=== PATIENT | male | born 1945 | race Caucasian/White ===

== ENCOUNTER 2020-01-21 07:40 | Emergency (ER) | payer MEDICARE, BC ==
--- NOTE | 2020-01-21 08:00 | EDM.PDOC ---
ED HPI GENERAL MEDICAL PROBLEM - General Chief Complaint: Cardiovascular Problem Stated Complaint: A FIB Time Seen by Provider: 01/21/20 07:58 - History of Present Illness INITIAL COMMENTS - FREE TEXT/NARRATIVE: 74-year-old male presents the emergency room after having surgery held off due to A. fib with RVR. Patient was scheduled for a carpal tunnel release however his preop EKG showed atrial fib with RVR. Patient really has not had any symptoms with this. He is not sure what the onset is however he did notice over the last couple weeks if he bends over and sits up really quick he might get a little lightheaded. The p [place] is fairly active rides his bike on a regular basis. He used to run marathons and is in pretty good shape. He has a history of aortic regurgitation however his last echo a couple years ago showed an EF of over 60%. - Related Data Allergies Allergy/AdvReac Type Severity Reaction Status Date / Time No Known Allergies Allergy Verified 01/20/20 13:09 Home Meds: Home Meds Biotin 1 mg PO DAILY 01/20/20 [History] Fish Oil/[place]-3 Fatty Acids [Fish Oil 1,000 MG] 1 gm PO DAILY 01/20/20 [History] Folic Acid 1 mg PO DAILY 01/20/20 [History] Multivitamin [Multivitamins] 1 cap PO DAILY 01/20/20 [History] Non-Formulary Medication [NF Drug] 1 each PO DAILY 01/20/20 [History] Acetaminophen/HYDROcodone [[place] 325-5 MG] 1 - 2 tab PO Q6H PRN #10 tablet 01/21/20 [Rx] Apixaban [Eliquis] 5 mg PO Q12H #60 tablet 01/21/20 [Rx] Digoxin [Digox] 125 mcg PO ASDIRECTED #31 tablet 01/21/20 [Rx] Past Medical History HEENT History: Reports: Other (See Below) Other HEENT History: deviated septum Respiratory History: Reports: Asthma Genitourinary History: Reports: BPH Oncologic (Cancer) History: Reports: Basal Cell Carcinoma, Squamous Cell Carcinoma Other Dermatologic History: actinic kerotosis - Past Surgical History GI Surgical History: Reports: Hernia Repair/Other Musculoskeletal Surgical History: Reports: Carpal Tunnel Social & Family History - Caffeine Use Caffeine Use: Reports: Coffee ED ROS GENERAL - Review of Systems Review Of Systems: See Below Constitutional: Reports: No Symptoms. Denies: Fever, Chills HEENT: Reports: No Symptoms Respiratory: Reports: No Symptoms Cardiovascular: Reports: No Symptoms. Denies: Chest Pain, Dyspnea on Exertion, Edema, Palpitations, Syncope Endocrine: Reports: No Symptoms GI/Abdominal: Reports: No Symptoms : Reports: No Symptoms Musculoskeletal: Reports: No Symptoms Skin: Reports: No Symptoms Neurological: Reports: No Symptoms ED EXAM, GENERAL - Physical Exam Exam: See Below Exam Limited By: No Limitations General Appearance: Alert, No Apparent Distress Neck: Normal Inspection, Supple, Non-Tender, Full Range of Motion Respiratory/Chest: No Respiratory Distress, Lungs Clear, Normal Breath Sounds Cardiovascular: No Edema, No Murmur, Irregularly Irregular GI/Abdominal: Normal Bowel Sounds, Soft, Non-Tender Extremities: Normal Inspection, No Pedal Edema Neurological: Alert, Oriented, Normal Cognition EKG INTERPRETATION Rhythm: A-Fib Rate (Beats/Min): 121 [place]: Normal P-Wave: Absent QRS: Normal ST-T: Other (Mild LV strain pattern and some nonspecific changes most likely due to tachycardia) QT: Normal Comparison: NA - No Prior EKG EKG Interpretation Comments: Abnormal Course - Vital Signs Last Recorded V/S: Last Vital Signs Temp 36.8 C 01/21/20 07:40 Pulse 140 H 01/21/20 07:40 Resp 20 01/21/20 07:40 BP 136/84 01/21/20 07:40 Pulse Ox 98 01/21/20 07:40 - Orders/Labs/Meds Orders: Active Orders 24 hr Category Date Time Status Chest 1V Frontal [CR] Stat Exams 01/21/20 07:52 Taken Labs: Laboratory Tests 01/21/20 01/21/20 01/21/20 Range/Units 08:04 08:04 08:04 WBC 5.35 (4.23-9.07) K/mm3 RBC 4.64 (4.63-6.08) M/mm3 Hgb 15.0 (13.7-17.5) gm/dl Hct 43.8 (40.1-51.0) % MCV 94.4 H (79.0-92.2) fl MCH 32.3 H (25.7-32.2) pg MCHC 34.2 (32.2-35.5) g/dl RDW Std Deviation 41.9 (35.1-43.9) fL Plt Count 191 (163-337) K/mm3 MPV 8.9 L (9.4-12.3) fl Neut % (Auto) 55.7 (34.0-67.9) % Lymph % (Auto) 35.5 (21.8-53.1) % [place] % (Auto) 8.0 (5.3-12.2) % Eos % (Auto) 0.4 L (0.8-7.0) Baso % (Auto) 0.4 (0.1-1.2) % Neut # (Auto) 2.98 (1.78-5.38) K/mm3 Lymph # (Auto) 1.90 (1.32-3.57) K/mm3 [place] # (Auto) 0.43 (0.30-0.82) K/mm3 Eos # (Auto) 0.02 L (0.04-0.54) K/mm3 Baso # (Auto) 0.02 (0.01-0.08) K/mm3 Sodium 142 (136-145) mEq/L Potassium 4.0 (3.5-5.1) mEq/L Chloride 107 (98-107) mEq/L Carbon Dioxide 24 (21-32) mEq/L Anion Gap 15.0 (5-15) BUN 17 (7-18) mg/dL Creatinine 1.0 (0.7-1.3) mg/dL Est Cr Clr Drug Dosing 74.43 mL/min Estimated GFR (MDRD) > 60 (>60) mL/min BUN/Creatinine Ratio 17.0 (14-18) Glucose 97 (83-115) mg/dL Calcium 9.0 (8.5-10.1) mg/dL Magnesium 1.8 (1.8-2.4) mg/dl Total Bilirubin 0.7 (0.2-1.0) mg/dL AST 22 (15-37) U/L ALT 32 (16-63) U/L Alkaline Phosphatase 78 (46-116) U/L Troponin I < 0.017 (0.00-0.056) ng/mL Total Protein 6.4 (6.4-8.2) g/dl Albumin 3.6 (3.4-5.0) g/dl Globulin 2.8 gm/dL Albumin/Globulin Ratio 1.3 (1-2) Meds: Medications Discontinued Medications Generic Name Dose Route Start Last Admin Trade Name [place] PRN Reason Stop Dose Admin Digoxin 250 mcg 01/21/20 08:52 Lanoxin PO 01/21/20 08:53 ONETIME ONE - Re-Assessments/Exams Free Text/Narrative Re-Assessment/Exam: 01/21/20 08:[address] Guo, the patient's regular physician, he cannot find a echo on the patient however he believes to be safe to start him on Eliquis. For rate control with the patient being very active we will start him on digoxin I will give him 250 mcg now he will repeat this in 6 hours and then 125 mcg daily. The patient will follow up with early this next week. The patient is restless to get going as his ride is getting impatient. Departure - Departure Time of Disposition: 09:00 Disposition: Home, Self-Care 01 Clinical Impression: Atrial fibrillation with rapid ventricular response Referrals: Neptali Guo MD [Primary Care Provider] - Forms: ED Department Discharge Additional Instructions: Return to the emergency room with any questions problems or worsening symptoms. Follow-up with your doctor early next week. Call today to schedule an appointment. You have been started on Eliquis, this is a blood thinner, take 1 every 12 hours. You have been started on digoxin, this is to slow your heart rate down, take 2 at 3:00 this afternoon and then take 1 every morning starting tomorrow morning. Sepsis Event Note (ED) - Evaluation Sepsis Screening Result: No Definite Risk - Focused Exam Vital Signs: Vital Signs Temp Pulse Resp BP Pulse Ox 01/21/20 07:40 36.8 C 140 H 20 136/84 98 - My Orders Last 24 Hours: My Active Orders 01/21/20 07:52 Chest 1V Frontal [CR] Stat - Assessment/Plan Last 24 Hours: My Active Orders 01/21/20 07:52 Chest 1V Frontal [CR] Stat
[2020-01-21] MEDS ORDERED: Digoxin 250 MCG Tab PO ONE (08:52)
--- NOTE | 2020-01-21 09:16 | CR ---
Chest: Portable view of the chest was obtained. Comparison: No previous chest imaging. Small portion of the right lateral costophrenic angle is not included on this study. Lungs otherwise are clear. Heart size and mediastinum are normal. Bony structures are unremarkable. Impression: 1. Small portion of the right lateral costophrenic angle not included. 2. Nothing acute is appreciated. Diagnostic code #2 This report was dictated in MDT
== END 2020-01-21 09:20 | disposition home or self-care (01) ==
LOC: JD.ED 07:40 → SUPCPDRO 07:40 → JD.ED 09:20
DX: I48.91 Unspecified atrial fibrillation (principal); J45.909 Unspecified asthma, uncomplicated; Z79.01 Long term (current) use of anticoagulants; Z79.899 Other long term (current) drug therapy
CPT/HCPCS: 36415; 71045; 80053; 83735; 84484; 85025; 99285; A9270; 93010; 99283

== ENCOUNTER → 2020-01-21 | Day surgery (SDC) | payer MEDICARE, BC ==
[~2020-01-21] MED LIST: Bupivacaine 0.25% 10 ML SDV ONE; Lactated Ringers 1,000 ML IV SCH; Lidocaine 1% 30 ML SDV ONE; Lidocaine 1%/Sod Bicarbonate in NS 8.4% 1 ML Syringe IDERM PRN; Propofol 200 MG/20 ML SDV ONE; Sodium Chloride 0.9% 10 ML Syringe FLUSH PRN; fentaNYL 100 MCG/2 ML SDV ONE
--- NOTE | 2020-01-21 07:49 | PCM.PREANE ---
Preanesthetic Assessment - Procedure Proposed Procedure: Carpal tunnel release - left - Anesthesia/Transfusion/Family Hx Anesthesia History: Prior Anesthesia Without Reaction - Review of Systems General: No Symptoms Pulmonary: No Symptoms Cardiovascular: No Symptoms Gastrointestinal: No Symptoms Neurological: No Symptoms - Physical Assessment NPO Status Date: 01/20/20 Vital Signs: Last Vital Signs Temp 97.2 F 01/21/20 06:35 Pulse 72 01/21/20 06:35 Resp 16 01/21/20 06:35 BP 128/78 01/21/20 06:35 Pulse Ox 97 01/21/20 06:35 Height: 1.88 m Weight: 81.647 kg ASA Class: 2 Airway Class: Mallampati = 2 Dentition: Reports: [place](s) Thyro-Mental Finger Breadths: 3 Mouth Opening Finger Breadths: 3 ROM/Head Extension: Full Lungs: Clear to Auscultation, Normal Respiratory Effort Cardiovascular: Irregular Rhythm - Lab Values: Laboratory Last Values COVID-19 PCR Not detected (NOT DETECT) 01/18/20 11:45 MRSA (PCR) Negative 01/18/20 10:53 - Allergies Allergies/Adverse Reactions: Allergies Allergy/AdvReac Type Severity Reaction Status Date / Time No Known Allergies Allergy Verified 01/20/20 13:09 - Acknowledgements Anesthesia Type Planned: MAC Pt an Appropriate Candidate for the Planned Anesthesia: No Alternatives and Risks of Anesthesia Discussed w Pt/Guardian: Yes Pt/Guardian Understands and Agrees with Anesthesia Plan: Yes Additional Comments: Patient has been cleared for surgery previously but denied previous irregular heart rate or chest discomfort. There was no previous EKG to compare. The patient was attached to the 3 lead monitor in OR which showed rapid irregular electrical activity of the heart and the case is canceled. The patient has been taken to preoperative are where 12 lead EKG was done immediately, which showed atrial fibrillation. There is no history of atrial fibrillation on the chart, so a new onset is presumed. The patient is being sent to ED for further evaluation PreAnesthesia Questionnaire HEENT History: Reports: Other (See Below) Other HEENT History: deviated septum Respiratory History: Reports: Asthma Genitourinary History: Reports: BPH Oncologic (Cancer) History: Reports: Basal Cell Carcinoma, Squamous Cell Carcinoma Other Dermatologic History: actinic kerotosis - Past Surgical History GI Surgical History: Reports: Hernia Repair/Other Musculoskeletal Surgical History: Reports: Carpal Tunnel - SUBSTANCE USE Smoking Status *Q: Former Smoker Days Per Week of Alcohol Use: 7 Number of Drinks Per Day: 2 Total Drinks Per Week: 14 Recreational Drug Use History: No - HOME MEDS Home Medications: Home Meds Biotin 1 mg PO DAILY 01/20/20 [History] Fish Oil/[place]-3 Fatty Acids [Fish Oil 1,000 MG] 1 gm PO DAILY 01/20/20 [History] Folic Acid 1 mg PO DAILY 01/20/20 [History] Multivitamin [Multivitamins] 1 cap PO DAILY 01/20/20 [History] Non-Formulary Medication [NF Drug] 1 each PO DAILY 01/20/20 [History] Acetaminophen/HYDROcodone [[place] 325-5 MG] 1 - 2 tab PO Q6H PRN #10 tablet 01/21/20 [Rx] - CURRENT (IN HOUSE) MEDS Current Meds: Current Medications Lactated Ringer's (Ringers, Lactated) 1,000 mls @ 125 mls/hr IV ASDIRECTED ENE Stop: 01/21/20 23:00 Last Admin: 01/21/20 06:50 Dose: 125 mls/hr Documented by: Lidocaine/Sodium Bicarbonate (Buffered Lidocaine 1% In Ns 8.4%) 0.25 ml IDERM ONETIME PRN PRN Reason: Prior to IV Start Stop: 01/21/20 18:00 Last Admin: 01/21/20 06:50 Dose: 0.25 ml Documented by: Sodium Chloride (Saline Flush) 10 ml FLUSH ASDIRECTED PRN PRN Reason: Keep Vein Open Stop: 01/21/20 18:00 Discontinued Medications Bupivacaine HCl (Sensorcaine-Mpf 0.25%) Confirm Administered Dose 10 ml .ROUTE .STK-MED ONE Stop: 01/21/20 06:48 Fentanyl (Sublimaze) Confirm Administered Dose 100 mcg .ROUTE .STK-MED ONE Stop: 01/21/20 07:02 Lidocaine HCl (Xylocaine-Mpf 1%) Confirm Administered Dose 30 ml .ROUTE .STK-MED ONE Stop: 01/21/20 06:48 Lidocaine HCl (Xylocaine-Mpf 1%) Confirm Administered Dose 30 ml .ROUTE .STK-MED ONE Stop: 01/21/20 06:49 Propofol (Diprivan 20 Ml) Confirm Administered Dose 200 mg .ROUTE .STK-[facility] ONE Stop: 01/21/20 07:01
== END | disposition home or self-care (01) ==
LOC: JD.SDS 06:32
PROVIDERS: ATTEND Orthopaedic Surgery
DX: G56.02 Carpal tunnel syndrome, left upper limb (principal); I48.91 Unspecified atrial fibrillation; J45.909 Unspecified asthma, uncomplicated; Z11.59 Encounter for screening for other viral diseases; Z53.09 Procedure and treatment not carried out because of other contraindication; Z87.891 Personal history of nicotine dependence; Z79.899 Other long term (current) drug therapy
CPT/HCPCS: 87641; 93005; J2001; J3490; J7120; U0002; J2704; J3010

== ENCOUNTER 2021-12-26 08:27 | Emergency (ER) | payer MEDICARE, BC ==
[2021-12-26] MEDS ORDERED: Sodium Chloride 0.9% 10 ML Syringe FLUSH PRN (09:30)
[2021-12-26] MEDS ORDERED: Sodium Chloride 0.9% 1,000 ML IV SCH (09:45)
[2021-12-26 11:05] LABS: ESTIMATED GFR 92 mL/min (>60)
[2021-12-26] MEDS ORDERED: Metoprolol Tartrate 25 MG Tab PO ONE (11:44)
== END 2021-12-26 13:50 | disposition home or self-care (01) ==
LOC: JD.ED 08:27
DX: I48.91 Unspecified atrial fibrillation (principal); Z79.01 Long term (current) use of anticoagulants
CPT/HCPCS: 36415; 71045; 80053; 81003; 83735; 83880; 84484; 85025; 86140; 93005; 96360; 96361; 99285; A9270; J3490; J7030; 99284

== ENCOUNTER 2023-03-04 06:15 | Day surgery (SDC) | payer MEDICARE, BC ==
[~2023-03-04 06:15] MED LIST changes: -Bupivacaine 0.25% 10 ML SDV ONE; -Lidocaine 1% 30 ML SDV ONE; -Lidocaine 1%/Sod Bicarbonate in NS 8.4% 1 ML Syringe IDERM PRN; -Propofol 200 MG/20 ML SDV ONE; +VANCOmycin 1.25 GM/250 ML 1.25 GM in Premix Bag 1 BAG IV ONE; -fentaNYL 100 MCG/2 ML SDV ONE
[2023-03-04] MEDS ORDERED: Lidocaine 1% 30 ML SDV ONE (06:40)
[2023-03-04] MEDS ORDERED: Bupivacaine 0.5% 30 ML SDV ONE (06:40)
[2023-03-04] MEDS ORDERED: Bupivacaine 0.25% 10 ML SDV ONE (06:41)
[2023-03-04] MEDS ORDERED: Lidocaine 1% 10 ML MDV ONE (06:41)
[2023-03-04] MEDS ORDERED: Lidocaine 1% 5 ML VIAL ONE (06:50)
[2023-03-04] MEDS ORDERED: Propofol 200 MG/20 ML SDV ONE (06:50)
[2023-03-04] MEDS ORDERED: fentaNYL 100 MCG/2 ML SDV ONE (06:50)
[2023-03-04] MEDS ORDERED: ceFAZolin 2 GM Vial ONE (06:50)
[2023-03-04] MEDS ORDERED: Ketorolac 15 MG/ML SDV ONE (07:24)
== END 2023-03-04 08:57 | disposition home or self-care (01) ==
LOC: JD.SDS 06:15
PROVIDERS: ATTEND Orthopaedic Surgery
DX: G56.02 Carpal tunnel syndrome, left upper limb (principal); I48.91 Unspecified atrial fibrillation; E29.1 Testicular hypofunction; F41.1 Generalized anxiety disorder; N40.0 Benign prostatic hyperplasia without lower urinary tract symptoms; F32.A Depression, unspecified; L57.0 Actinic keratosis; Z79.01 Long term (current) use of anticoagulants; Z79.899 Other long term (current) drug therapy; Z87.891 Personal history of nicotine dependence
CPT/HCPCS: 64721; J0690; J1885; J2704; J3010; J3370; J3490; J7120; 01810; 99100

== ENCOUNTER 2023-05-09 10:45 | Day surgery (SDC) | payer MEDICARE, BC ==
[~2023-05-09 10:45] MED LIST changes: +Cefuroxime 10 MG/ML SYRINGE EYELF SCH; -Lactated Ringers 1,000 ML IV SCH; +Lidocaine 1% PF 2 ML SDV INJECT SCH; +Pilocarpine 4% Ophth Soln 15 ML Bot EYELF SCH; -Sodium Chloride 0.9% 10 ML Syringe FLUSH PRN; -VANCOmycin 1.25 GM/250 ML 1.25 GM in Premix Bag 1 BAG IV ONE
[2023-05-09] MEDS: Polymyxin B/Trimethoprim 10 ML Bottle EYELF SCH ×3 (10:46→12:44)
[2023-05-09] MEDS: Brimonidine 0.2% Ophth Soln 5 ML Bottle EYELF SCH ×3 (10:52→12:44)
[2023-05-09] MEDS: Phenylephrine 2.5% Ophth Soln 2 ML Bot EYELF SCH ×5 (11:04→12:25)
[2023-05-09] MEDS: Tropicamide 1% Ophth Soln 3 ML Bottle EYELF SCH ×4 (11:06→11:40)
[2023-05-09] MEDS: Tetracaine HCl/PF 0.5% 4 ML Bottle EYEBOTH SCH ×4 (12:10→12:32)
== END 2023-05-09 12:46 | disposition home or self-care (01) ==
LOC: JD.SDS 10:45
PROVIDERS: ATTEND Ophthalmology
DX: H25.812 Combined forms of age-related cataract, left eye (principal); I10 Essential (primary) hypertension; F41.9 Anxiety disorder, unspecified; I48.91 Unspecified atrial fibrillation; J45.909 Unspecified asthma, uncomplicated; Z79.01 Long term (current) use of anticoagulants; Z79.899 Other long term (current) drug therapy
CPT/HCPCS: 66984; A9270; J0697; V2632; 00142; 99100; J3490

== ENCOUNTER 2024-02-14 11:51 | Emergency (ER) | payer MEDICARE, BC ==
[2024-02-14 13:29] LABS: BASOPHILS PERCENT AUTO 0.7 % (0.0-1.0); EOSINOPHILS PERCENT AUTO 0.7 % (0.0-6.0); HEMATOCRIT 43.6 % (42.0-52.0); HEMOGLOBIN 15.2 gm/dl (14.0-18.0); IMMATURE GRAN ABSOLUTE AUTO 0.02 K/mm3 (0.00-0.05); IMMATURE GRAN PERCENT AUTO 0.3 % (0.0-0.4); LYMPHOCYTES ABSOLUTE AUTO 1.6 K/mm3 (1.0-4.8); LYMPHOCYTES PERCENT AUTO 25.7 % (24.0-44.0); MEAN CORPUSCULAR HEMOGLOBIN 31.9 pg (28.0-32.0); MEAN CORPUSCULAR HGB CONC 34.9 g/dl (32.0-36.0); MEAN CORPUSCULAR VOLUME 91.4 fl (83.0-99.0); MEAN PLATELET VOLUME 8.7 fl (9.4-12.4); MONOCYTES ABSOLUTE AUTO 0.6 K/mm3 (0.0-0.8); MONOCYTES PERCENT AUTO 8.9 % (0.0-8.0); NEUTROPHILS ABSOLUTE AUTO 3.9 K/mm3 (1.8-7.7); NEUTROPHILS PERCENT AUTO 63.7 % (41.0-71.0); PLATELET COUNT,PLT 187 K/mm3 (150-400); RED BLOOD CELL COUNT 4.77 M/mm3 (4.52-5.90); WHITE BLOOD CELL COUNT,WBC 6.15 K/mm3 (3.9-11.3)
[2024-02-14 13:55] LABS: A/G RATIO 1.5 (1-2); ALBUMIN 3.9 g/dl (3.4-5.0); ANION GAP 12.1 (5-15); BILIRUBIN TOTAL 0.6 mg/dL (0.2-1.0); BUN/CREATININE RATIO 18.6 (14-18); CALCIUM 9.2 mg/dL (8.5-10.1); CREATININE 0.7 mg/dL (0.7-1.3); EST CRCL DRUG DOSING (CG) 99.88 mL/min; POTASSIUM,K 4.1 mEq/L (3.5-5.1); PROTEIN TOTAL,TP 6.5 g/dl (6.4-8.2); TSH 1.842 uIU/mL (0.358-3.74)
[2024-02-14 13:59] LABS: LACTIC ACID 0.5 mmol/L (0.4-2.0)
== END 2024-02-14 16:00 | disposition home or self-care (01) ==
LOC: JD.ED 11:51
DX: R42 Dizziness and giddiness (principal); I48.91 Unspecified atrial fibrillation; J45.909 Unspecified asthma, uncomplicated; Z79.899 Other long term (current) drug therapy; Z79.01 Long term (current) use of anticoagulants
CPT/HCPCS: 36415; 80053; 83605; 83735; 83880; 84443; 84484; 85025; 93005; 99284; U0002; 93010; 99283

== ENCOUNTER 2025-04-21 07:25 | Day surgery (SDC) | payer MEDICARE, BC ==
[2025-04-21] MEDS: Lactated Ringers 1,000 ML IV SCH (07:45)
[2025-04-21] MEDS ORDERED: Sodium Chloride 0.9% 10 ML Syringe FLUSH PRN (07:49)
[2025-04-21] MEDS ORDERED: propofoL 500 MG/50 ML 50 ML ONE (08:34)
[2025-04-21] MEDS ORDERED: Ropivacaine 0.5% 5 MG/ML 30 ML SDV ONE (08:34)
[2025-04-21] MEDS ORDERED: Midazolam 1 MG/ML 2 ML SDV ONE (08:34)
[2025-04-21] MEDS ORDERED: fentaNYL 100 MCG/2 ML SDV ONE (08:34)
[2025-04-21] MEDS ORDERED: Sodium Chloride 0.9% 10 ML Syringe FLUSH SCH (09:00)
[2025-04-21] MEDS ORDERED: Dexamethasone 4 MG/ML 5 ML MDV ONE (09:02)
[2025-04-21] MEDS ORDERED: ePHEDrine 50 MG/ML SDV ONE (09:03)
[2025-04-21] MEDS ORDERED: dexmedeTOMIDine HCl 200 MCG/2 ML SDV ONE (09:05)
[2025-04-21] MEDS: EPINEPHrine 1 MG/ML SDV ONE (09:16)
[2025-04-21] MEDS ORDERED: Lactated Ringers 1,000 ML ONE (09:20)
[2025-04-21] MEDS ORDERED: Propofol 200 MG/20 ML SDV ONE (09:38)
[2025-04-21] MEDS ORDERED: Ketorolac 30 MG/ML SDV ONE (09:56)
[2025-04-21] MEDS ORDERED: fentaNYL 100 MCG/2 ML SDV IVPUSH PRN (10:07)
[2025-04-21] MEDS ORDERED: Ondansetron 4 MG/2 ML SDV IVPUSH PRN (10:07)
== END 2025-04-21 11:20 | disposition home or self-care (01) ==
LOC: JD.SDS 07:25
PROVIDERS: ATTEND Surgery
DX: K40.90 Unilateral inguinal hernia, without obstruction or gangrene, not specified as recurrent (principal); I48.91 Unspecified atrial fibrillation; Z79.01 Long term (current) use of anticoagulants; Z79.899 Other long term (current) drug therapy
CPT/HCPCS: 49505; 64425; J0169; J0665; J0690; J1100; J1885; J2250; J2704; J2795; J3010; J7120; C1781; J3490